=== PATIENT | female | born 1990 | race Caucasian/White ===

== ENCOUNTER 2020-05-26 09:43 | Outpatient (CLI) | payer BC, SELFPAY ==
[2020-05-26] VITALS (7 sets, daily range): BP systolic 114–130; BP diastolic 61–77; PULSE 65–83; TEMP 35.9
--- NOTE | 2020-05-26 10:22 | PC.NURSE ---
Pt sent over from 's office for elevated bp's, NST, PIH labs.
[2020-05-26 10:25] LABS: Basophils Percent Auto 0.3 % (0.2-1.2); Eosinophils Absolute Auto 0.1 K/mm3 (0-0.3); Eosinophils Percent Auto 1.1 % (0-4.4); Hematocrit 35.3 % (37.0-47.0); Hemoglobin 11.8 g/dL (12.0-15.0); Immature Granulocyte Absolute 0.04 K/mm3 (0.00-0.031); Immature Granulocyte Percent A 0.6 % (0-0.5); Lymphocytes Percent Auto 23.2 % (18.3-44.2); Mean Corpuscular HGB Conc 33.4 g/dl (32-36); Mean Corpuscular Hemoglobin 28.4 pg (26-34); Mean Corpuscular Volume 85.1 fl (80-100); Mean Platelet Volume 12.1 fl (7.4-10.4); Monocytes Absolute Auto 0.7 K/mm3 (0.1-0.6); Neutrophils Absolute Auto 4.1 K/mm3 (1.3-6.7); Neutrophils Percent Auto 63.8 % (45.5-73.1); Platelet Count Result 248 k/mm3 (150-375); Red Blood Count 4.15 M/mm3 (4.2-5.4); Red Cell Distribution Width 12.9 % (11.5-14.5); White Blood Count 6.5 K/mm3 (4.5-10.0)
[2020-05-26 10:31] LABS: Add Urine Microscopic? YES; Appearance Urine Cloudy (Clear); Bacteria Urine 2+ /hpf; Bilirubin Urine Negative (Negative); Blood Urine Negative (Negative); Color Urine Yellow (Yellow); Glucose Urine UA 1+ mg/dL (Negative); Ketones Urine Negative (Negative); Leukocyte Esterase Ur Trace LEU/UL (NEGATIVE); Mucus Urine Rare /lpf; Nitrate Urine Negative (Negative); Protein Urine 2+ mg/dL (Negative); RBC Urine 0-2 /hpf (0-2); Specific Grav Ur 1.026 (1.001-1.035); Squamous Epithelial Cell Urine Many /hpf (Few)
[2020-05-26 10:34] LABS: Creatinine Urine 156.7 mg/dL; Total Protein Urine Random 10 mg/dL
[2020-05-26 10:38] LABS: Alanine Aminotransferase 21 U/L (4-35); Albumin Level 3.5 g/dL (3.5-5.1); Alkaline Phosphatase 163 U/L (38-126); Anion Gap 6 mmol/L (8-16); Aspartate Amino Transferase 27 U/L (14-36); Bilirubin,Total 0.3 mg/dL (0.2-1.3); Blood Urea Nitrogen 9 mg/dL (7-17); Calcium 8.4 mg/dL (8.4-10.2); Carbon Dioxide 21 mmol/L (22-30); Chloride 109 mmol/L (98-107); Estimated Glomerular Filt Rate > 60; Glucose 88 mg/dL (65-105); Sodium 136 mmol/L (137-145); Uric Acid 3.6 mg/dL (2.5-7.5)
--- NOTE | 2020-05-26 11:10 | PC.NURSE ---
1059- called, read bp's and lab results. Orders received to discharge pt home
== END 2020-05-26 11:02 | disposition home or self-care (01) ==
LOC: ANHOBOP 09:47 → ANHOBPP 09:48
PROVIDERS: Visit Provider Obstetrics & Gynecology
DX: O13.9 Gestational [pregnancy-induced] hypertension without significant proteinuria, unspecified trimester (principal); Z3A.00 Weeks of gestation of pregnancy not specified
CPT/HCPCS: 36415; 59025; 80053; 81001; 82570; 84156; 84550; 85025; 87086; 87088; 99199

== ENCOUNTER 2020-06-08 04:00 | Inpatient (IN) | payer BC, SELFPAY ==
[2020-06-08] VITALS (77 sets, daily range): BP systolic 93–150; BP diastolic 48–106; PULSE 54–111; RESP 17–18; TEMP 36.3–36.9; O2SAT 99–100; BMI 40.8
--- NOTE | 2020-06-08 04:55 | LDADM ---
This patient, Livia Rivera, was admitted to Labor/Delivery/Recovery 105 on 06/08/20 at 04:00. Plans for labor, pain management and were discussed with patient. Patient/family oriented to hospital policies and general routines including ID bracelet, bed and alarms, visiting hours, pain management, procedures, bathroom and other care routines, personal items, smoking policy, room service/diet and guest tray routines, security routines, and visiting hours. Patient/Family are encouraged to report perceived risks to care and to ask questions if they do not understand what they are told or what they should do. See OBIX for further documentation.
[2020-06-08 04:58] LABS: Basophils Percent Auto 0.5 % (0.2-1.2); Eosinophils Absolute Auto 0.1 K/mm3 (0-0.3); Eosinophils Percent Auto 0.9 % (0-4.4); Hemoglobin 11.5 g/dL (12.0-15.0); Immature Granulocyte Absolute 0.02 K/mm3 (0.00-0.031); Immature Granulocyte Percent A 0.3 % (0-0.5); Lymphocytes Absolute Auto 1.62 K/mm3 (0.9-3.2); Lymphocytes Percent Auto 21.5 % (18.3-44.2); Mean Corpuscular HGB Conc 33.8 g/dl (32-36); Mean Corpuscular Hemoglobin 28.1 pg (26-34); Mean Corpuscular Volume 83.1 fl (80-100); Mean Platelet Volume 12.7 fl (7.4-10.4); Monocytes Absolute Auto 0.8 K/mm3 (0.1-0.6); Monocytes Percent Auto 10.1 % (2.6-8.5); Neutrophils Percent Auto 66.7 % (45.5-73.1); Platelet Count Result 262 k/mm3 (150-375); Red Blood Count 4.09 M/mm3 (4.2-5.4); Red Cell Distribution Width 12.6 % (11.5-14.5); White Blood Count 7.5 K/mm3 (4.5-10.0)
[2020-06-08 05:47] LABS: Alanine Aminotransferase 17 U/L (4-35); Albumin Level 3.3 g/dL (3.5-5.1); Alkaline Phosphatase 167 U/L (38-126); Anion Gap 6 mmol/L (8-16); Aspartate Amino Transferase 26 U/L (14-36); Bilirubin,Total 0.3 mg/dL (0.2-1.3); Blood Urea Nitrogen 13 mg/dL (7-17); Calcium 8.6 mg/dL (8.4-10.2); Carbon Dioxide 19 mmol/L (22-30); Chloride 108 mmol/L (98-107); Estimated CRCL calculation 158 ml/min; Estimated Glomerular Filt Rate > 60; Glucose 94 mg/dL (65-105); Potassium 3.7 mmol/L (3.4-5.0); Sodium 133 mmol/L (137-145); Uric Acid 3.9 mg/dL (2.5-7.5)
[2020-06-08] MEDS: LACTATED RINGERS 1,000 ML 125 ML IV CONT ×2 (07:09→07:54)
--- NOTE | 2020-06-08 07:21 | WPDANESEPP ---
Anes - Eval Pre Procedure Procedure: Labor epidural Date/Time: 06/08/20 07:21 Surgeon: Bill Preop Diagnosis: pain during labor Pre Op Diagnosis: ROM Patient Data Age: 29 Gender: F Height: 1.7 m Weight: 118.18 kg Last Vital Signs Temp 36.6 C 06/08/20 07:00 Pulse 79 06/08/20 07:15 BP 145/96 H 06/08/20 07:15 Allergies Allergy/AdvReac Type Severity Reaction Status Date / Time No Known Allergies Allergy Verified 05/19/20 13:30 Home Medications Medication Instructions Recorded Confirmed Type famotidine [Pepcid] 20 mg PO DAILY 05/19/20 05/26/20 History prenat.vits,danay,vmq-cchc-uxzof 1 tablet PO DAILY 05/19/20 05/26/20 History [ #2] Laboratory Tests 06/08/20 06/08/20 06/08/20 04:40 04:46 04:46 WBC 7.5 K/mm3 K/mm3 (4.5-10.0) RBC 4.09 M/mm3 L M/mm3 (4.2-5.4) Hgb 11.5 g/dL L g/dL (12.0-15.0) Hct 34.0 % L % (37.0-47.0) MCV 83.1 fl fl (80-100) MCH 28.1 pg pg (26-34) MCHC 33.8 g/dl g/dl (32-36) RDW 12.6 % % (11.5-14.5) Plt Count 262 k/mm3 k/mm3 (150-375) MPV 12.7 fl H fl (7.4-10.4) Immature Gran % (Auto) 0.3 % % (0-0.5) Neut % (Auto) 66.7 % % (45.5-73.1) Lymph % (Auto) 21.5 % % (18.3-44.2) [place] % (Auto) 10.1 % H % (2.6-8.5) Eos % (Auto) 0.9 % % (0-4.4) Baso % (Auto) 0.5 % % (0.2-1.2) Lymph # (Auto) 1.62 K/mm3 K/mm3 (0.9-3.2) [place] # (Auto) 0.8 K/mm3 H K/mm3 (0.1-0.6) Eos # (Auto) 0.1 K/mm3 K/mm3 (0-0.3) Baso # (Auto) 0.0 K/mm3 K/mm3 (0.0-0.1) Abs Immat Gran (auto) 0.02 K/mm3 K/mm3 (0.00-0.031) Absolute Neuts (auto) 5.0 K/mm3 K/mm3 (1.3-6.7) Absolute Nucleated RBC 0.0 K/mm3 K/mm3 (0.0-0.012) Nucleated RBC % 0.0 % % (0.0-0.2) Sodium 133 mmol/L L mmol/L (137-145) Potassium 3.7 mmol/L mmol/L (3.4-5.0) Chloride 108 mmol/L H mmol/L (98-107) Carbon Dioxide 19 mmol/L L mmol/L (22-30) Anion Gap 6 mmol/L L mmol/L (8-16) BUN 13 mg/dL mg/dL (7-17) Creatinine 0.60 mg/dL L mg/dL (0.7-1.0) Estim Creat Clear Calc 158 ml/min ml/min Estimated GFR > 60 (59 - ) Glucose 94 mg/dL mg/dL (65-105) Uric Acid 3.9 mg/dL mg/dL (2.5-7.5) Calcium 8.6 mg/dL mg/dL (8.4-10.2) Total Bilirubin 0.3 mg/dL mg/dL (0.2-1.3) AST 26 U/L U/L (14-36) ALT 17 U/L U/L (4-35) Alkaline Phosphatase 167 U/L H U/L (38-126) Total Protein 7.0 g/dL g/dL (6.3-8.2) Albumin 3.3 g/dL L g/dL (3.5-5.1) RPR Pending Blood Type Antibody Screen 06/08/20 04:46 WBC RBC Hgb Hct MCV MCH MCHC RDW Plt Count MPV Immature Gran % (Auto) Neut % (Auto) Lymph % (Auto) [place] % (Auto) Eos % (Auto) Baso % (Auto) Lymph # (Auto) [place] # (Auto) Eos # (Auto) Baso # (Auto) Abs Immat Gran (auto) Absolute Neuts (auto) Absolute Nucleated RBC Nucleated RBC % Sodium Potassium Chloride Carbon Dioxide Anion Gap BUN Creatinine Estim Creat Clear Calc Estimated GFR Glucose Uric Acid Calcium Total Bilirubin AST ALT Alkaline Phosphatase Total Protein Albumin RPR Blood Type A Positive Antibody Screen Negative Patient hx anesthesia problems: none Family hx anesthesia problems: none [facility] Family History Family History (Updated 05/19/20 @ 13:33 by Milton Mcdonald RN) Grandparent Ovarian cancer Grandparent Alzheimer disease Mother Hypertension Socia
[2020-06-08] MEDS: OXYTOCIN 30 UNITS/NS 500 ML 30 UNITS/500 ML BAG IV CONT (09:16)
--- NOTE | 2020-06-08 12:10 | WPDOBADMIT ---
Obstetrics - Admit Note Admission Note: record reviewed. Additions to the history and/or subsequent changes in the physical findings follow. 29 y/o at 38 4/7 weeks here after a gush of clear fluid around 0200 today. SROM confirmed on L&D. Contractions have worsened subsequently. Now comfortable with epidural. GBS neg. essentially uncomplicated, apart from some white coat HTN. AVSS NST reactive TOCO: contractions every 2-4 min ABD soft, nontender, gravid, vertex EXT nontender Cervix /-1 A: IUP at term with SROM / labor. P: Augment labor as needed. Anticipate .
--- NOTE | 2020-06-08 13:11 | PM.OBPRVD ---
OB - Delivery Note Procedure Delivery date: 06/08/20 Procedure: Induction method: none Delivery augmentation: pitocin Delivery monitor: external FHT and external uterine Route of delivery: Laceration Description: Perineal - 2nd Degree Delivery repair: vicryl (3-0) Specimen: Yes (cord blood) Quantitative Blood Loss: 135 Anesthesia type: Epidural Disposition: PACU Complications: Shoulder dystocia Narrative: 29 y/o at 38 4/7 weeks gestation who presented to the hospital after a gush of clear fluid. SROM was diagnosed. She received an epidural for pain control. Labor was augmented with oxytocin. Her labor progressed and her cervix dilated completely. She pushed with good effort and delivered the 's head to the perineum. A loose nuchal cord was reduced. A shoulder dystocia was encountered. Fundal pressure was strictly avoided. Anay maneuver was employed. The posterior (left) shoulder was able to be grasped and rotated in a clockwise direction, dislodging the right shoulder and effecting delivery. The nose and mouth were bulb suctioned. The cord was clamped and cut. The was handed off the field. Cord blood was collected. The placenta delivered spontaneously and was grossly normal in appearance. The usual 3 vessel cord was noted. A second degree midline perineal laceration was sustained. This was reapproximated using 3 0 Vicryl in the usual layered fashion. Excellent hemostasis resulted as did excellent reapproximation of the normal anatomy. Needle and instrument counts were correct. The patient was taken to recovery room in stable condition. The infant went to the nursery in stable condition. I was present and scrubbed for the entire delivery. [place] Baby Date of : 06/08/20 Time of : 12:47 Weeks of gestation at delivery: 38 gender: Female Weight (pounds): 7 Weight (ounces): 11 presentation: vertex position: Left Occiput Anterior Placenta delivery description: Spontaneous and Normal Configuration cord vessel description: 3 Vessels score one minute: 8 score five minutes: 9
--- NOTE | 2020-06-08 13:15 | PM.OBDSVD ---
DS: Admitting Diagnosis Admitting Diagnosis Admitting Diagnosis: ROM DS: Discharge Diagnosis Discharge Diagnosis (1) (normal spontaneous vaginal delivery): Code(s): O80 - Encounter for full-term uncomplicated delivery Status: Acute OB - DS: Summary OB Procedures : None OB Procedures Intrapartum: Spontaneous Vag Delivery OB Procedures: : None DS: Data Data Completed and Pending Labs on day of discharge: Labs from last 24 hours 06/08/20 06/08/20 06/08/20 04:46 04:46 04:46 WBC 7.5 RBC 4.09 L Hgb 11.5 L Hct 34.0 L MCV 83.1 MCH 28.1 MCHC 33.8 RDW 12.6 Plt Count 262 MPV 12.7 H Immature Gran % (Auto) 0.3 Neut % (Auto) 66.7 Lymph % (Auto) 21.5 [place] % (Auto) 10.1 H Eos % (Auto) 0.9 Baso % (Auto) 0.5 Lymph # (Auto) 1.62 [place] # (Auto) 0.8 H Eos # (Auto) 0.1 Baso # (Auto) 0.0 Abs Immat Gran (auto) 0.02 Absolute Neuts (auto) 5.0 Absolute Nucleated RBC 0.0 Nucleated RBC % 0.0 Sodium Potassium Chloride Carbon Dioxide Anion Gap BUN Creatinine Estim Creat Clear Calc Estimated GFR Glucose Uric Acid Calcium Total Bilirubin AST ALT Alkaline Phosphatase Total Protein Albumin RPR Pending Blood Type A Positive Antibody Screen Negative 06/08/20 04:40 WBC RBC Hgb Hct MCV MCH MCHC RDW Plt Count MPV Immature Gran % (Auto) Neut % (Auto) Lymph % (Auto) [place] % (Auto) Eos % (Auto) Baso % (Auto) Lymph # (Auto) [place] # (Auto) Eos # (Auto) Baso # (Auto) Abs Immat Gran (auto) Absolute Neuts (auto) Absolute Nucleated RBC Nucleated RBC % Sodium 133 L Potassium 3.7 Chloride 108 H Carbon Dioxide 19 L Anion Gap 6 L BUN 13 Creatinine 0.60 L Estim Creat Clear Calc 158 Estimated GFR > 60 Glucose 94 Uric Acid 3.9 Calcium 8.6 Total Bilirubin 0.3 AST 26 ALT 17 Alkaline Phosphatase 167 H Total Protein 7.0 Albumin 3.3 L RPR Blood Type Antibody Screen Discharge Plan Discharge Attending physician on discharge: Jose Daniel Khan Discharging Clinician: Jose Daniel Khan Patient Disposition: Home, Self-Care Activity: pelvic rest Diet: regular Discharge Instructions: Call or return if temperature above 100.4? F, increased abdominal pain, increased vaginal bleeding or any new problems. Stand Alone Forms: General Discharge Information Follow-up/Referrals: Jose Daniel Khan MD [Physician] - 6 Weeks Discharge Medications: New ibuprofen 600 mg tablet 600 mg PO Q6H PRN (Reason: cramps) Qty: 30 RF: 0 No Action famotidine [Pepcid] 20 mg Tablet 20 mg PO DAILY RF: 0 #2 Tablet 1 tablet PO DAILY RF: 0 Date of admission: 06/08/20 04:00 Primary Care Provider: PHYSICIAN,CELLO TEACHER Admitting Provider: Jose Daniel Khan Attending physician on admission: Jose Daniel Khan Condition: Stable
[2020-06-08] MEDS: OXYTOCIN 30 UNITS/NS 500 ML 30 UNITS/500 ML BAG 125 UNITS IV CONT (13:27)
[2020-06-08] MEDS: WITCH HAZEL 40 PADS 1 PAD TOPICAL ×2 (15:50→16:34)
[2020-06-08] MEDS: BENZOCAINE 20% AER SPR (*SP) 56 GM CAN 1 SPRAY TOPICAL ×2 (15:50→16:34)
--- NOTE | 2020-06-08 16:12 | PC.NURSE ---
Patient transferred to post room # 292 per wheelchair. Support person present. Oriented to unit, room, information board, rooming in, admission packet and security measures. Patient verbalizes understanding.
[2020-06-08] MEDS: LANOLIN (LANSINOH) 7.5 GM CREAM 1 APPLIC TOPICAL (16:34)
[2020-06-08] MEDS: DOCUSATE SODIUM 100 MG CAPSULE PO (16:34)
[2020-06-08] MEDS: IBUPROFEN 600 MG TABLET PO (16:34)
[2020-06-09] MEDS: IBUPROFEN 600 MG TABLET PO ×2 (01:43→08:50)
[2020-06-09 05:06] LABS: Hematocrit 32.7 % (37.0-47.0); Hemoglobin 10.9 g/dL (12.0-15.0)
--- NOTE | 2020-06-09 07:55 | WPDANLDPN2 ---
Anes-Prog Note L&D Date/Time: 06/09/20 07:55 Comfortable throughout: labor and delivery Neuraxial method: epidural Epidural/Spinal procedure site: clean & non-tender Neuro status: Neuro function grossly intact. Cardiovascular status: normal Respiratory status: normal Airway patency: baseline Mental status: baseline Post-Op hydration status: normal Vital Signs: Last Vital Signs Temp 36.5 C 06/08/20 20:10 Pulse 95 06/08/20 20:10 Resp 17 06/08/20 20:10 BP 133/84 06/08/20 20:10 Pulse Ox 100 06/08/20 09:18 Pain score (VAS): 0 I/O: Intake & Output 06/08/20 06/08/20 06/09/20 15:59 23:59 07:59 Output Total 63 Balance -63 Post-procedural complaints: none Patient feedback: Patient satisfied with anesthetic care.
[2020-06-09] MEDS: MULTIVIT/MIN/PREN/FOL AC/IRON TABLET 1 TAB PO (08:50)
[2020-06-09] MEDS: DOCUSATE SODIUM 100 MG CAPSULE PO (08:50)
[2020-06-09 10:14] LABS: Rapid Plasma Reagin Non-Reactive (NonReactive)
[2020-06-09 11:57] VITALS: BP 152/105; PULSE 86; RESP 18; TEMP 36.4
[2020-06-09 12:05] VITALS: BP 138/87; PULSE 87; RESP 18
[2020-06-09] MEDS: ACETAMINOPHEN 325 MG TABLET 650 MG PO (12:50)
--- NOTE | 2020-06-09 13:46 | PM.OBPNVD ---
OB - PN: Subj Subjective Date/time seen: 06/09/20 13:46 Narrative: Pain OK. Would like to go home. The baby had a left humeral fracture. OB - PN: Obj Data Labs CBC & Chem 7: 06/09/20 04:49 06/08/20 04:40 Labs: Laboratory Results - last 24 hr 06/08/20 06/09/20 04:46 04:49 Hgb 10.9 L Hct 32.7 L RPR Non-reactive OB - PN A/P Plan Comments: A: PPD#1, doing well. P: Home to f/u 6 weeks. Exam Psych: Other: AVSS ABD soft, nontender, fundus firm EXT nontender
[2020-06-12 13:35] VITALS: BP 155/92; PULSE 84; RESP 20; TEMP 36.8; O2SAT 100
== END 2020-06-09 16:55 | disposition home or self-care (01) | DRG 807 ==
LOC: ANHLDR 13:16 → ANHOB2 16:22
PROVIDERS: Admitting Provider Obstetrics & Gynecology; Visit Provider Obstetrics & Gynecology
DX: O66.0 Obstructed labor due to shoulder dystocia (principal); Z37.0 Single live birth; O99.214 Obesity complicating childbirth; E66.01 Morbid (severe) obesity due to excess calories; O70.1 Second degree perineal laceration during delivery; O69.81X0 Labor and delivery complicated by cord around neck, without compression, not applicable or unspecified; Z3A.38 38 weeks gestation of pregnancy
CPT/HCPCS: 36415; 80053; 84550; 85014; 85018; 85025; 86592; 86850; 86900; 86901; A9270; J2590; J2795; J7120

== ENCOUNTER 2022-08-04 19:06 | Observation (INO) | payer BC, SELFPAY ==
[2022-08-04 19:38] VITALS: BP 139/83; PULSE 94
[2022-08-04 19:40] VITALS: BP 138/83; PULSE 93
[2022-08-04 19:50] VITALS: BP 135/80; PULSE 85
[2022-08-04 20:00] VITALS: BP 139/76; PULSE 80
[2022-08-04 20:20] VITALS: BMI 40.7
--- NOTE | 2022-08-04 20:21 | OBADM ---
This patient, Livia Rivera, admitted to the OB room OB Post 116 for observation. Patient/family oriented to hospital policies and general routines including ID bracelet, bed and alarms, visiting hours, pain management, procedures, bathroom and other care routines, personal items, smoking policy, room service/diet, and visiting hours. Patient/Family are encouraged to report perceived risks to care and to ask questions if they do not understand what they are told or what they should do.
--- NOTE | 2022-08-04 22:29 | PM.OBTRLD ---
OB - Triage/Final Diagnosis Visit Information Date of evaluation: 08/04/22 Reason for evaluation: other (abdominal pain) Comments/Additional reasons for admission: I have assessed the risk for this patient, Livia Rivera, and determined that she would benefit from observation care. Evaluation Vital signs: Vital Signs - 24 hr 08/04/22 19:38 08/04/22 19:40 08/04/22 19:50 Pulse Rate 94 93 85 Blood Pressure 139/83 138/83 135/80 08/04/22 20:00 Pulse Rate 80 Blood Pressure 139/76
== END 2022-08-04 20:18 | disposition home or self-care (01) ==
PROVIDERS: Admitting Provider Obstetrics & Gynecology; Visit Provider Obstetrics & Gynecology
DX: O26.899 Other specified pregnancy related conditions, unspecified trimester (principal); R10.9 Unspecified abdominal pain
CPT/HCPCS: 59025; G0378; G0379

== ENCOUNTER 2022-09-01 14:48 | Outpatient (CLI) | payer BC, SELFPAY ==
[2022-09-01] VITALS (8 sets, daily range): BP systolic 137–146; BP diastolic 66–82; PULSE 75–92; RESP 20; TEMP 36.7
[2022-09-01 15:41] LABS: Basophils Percent Auto 0.4 % (0.2-1.2); Eosinophils Percent Auto 0.4 % (0-4.4); Hematocrit 31.3 % (37.0-47.0); Hemoglobin 10.6 g/dL (12.0-15.0); Immature Granulocyte Absolute 0.06 K/mm3 (0.00-0.031); Immature Granulocyte Percent A 0.9 % (0-0.5); Lymphocytes Absolute Auto 1.63 K/mm3 (0.9-3.2); Lymphocytes Percent Auto 24.2 % (18.3-44.2); Mean Corpuscular HGB Conc 33.9 g/dl (32-36); Mean Corpuscular Hemoglobin 29.1 pg (26-34); Mean Platelet Volume 11.8 fl (7.4-10.4); Monocytes Absolute Auto 0.7 K/mm3 (0.1-0.6); Neutrophils Absolute Auto 4.2 K/mm3 (1.3-6.7); Neutrophils Percent Auto 63.1 % (45.5-73.1); Platelet Count Result 228 k/mm3 (150-375); Red Blood Count 3.64 M/mm3 (4.2-5.4); Red Cell Distribution Width 13.2 % (11.5-14.5); White Blood Count 6.7 K/mm3 (4.5-10.0)
[2022-09-01 15:45] LABS: Appearance Urine Cloudy (Clear); Bilirubin Urine Negative (Negative); Blood Urine Negative (Negative); Color Urine Yellow (Yellow); Glucose Urine UA Negative (Negative); Ketones Urine Trace mg/dL (Negative); Leukocyte Esterase Ur Negative LEU/UL (NEGATIVE); Nitrate Urine Negative (Negative); Protein Urine 1+ mg/dL (Negative); Specific Grav Ur 1.025 (1.001-1.035)
[2022-09-01 15:51] LABS: Amorphous Sediment Urine Few; Bacteria Urine Trace /hpf; Mucus Urine Rare /lpf; RBC Urine 0-2 /hpf (0-2); Squamous Epithelial Cell Urine Many /hpf (Few); WBC Urine 0-3 /hpf (0-3)
[2022-09-01 15:52] LABS: Add Urine Microscopic? YES
[2022-09-01 16:09] LABS: Alanine Aminotransferase 22 U/L (6-35); Albumin Level 3.6 g/dL (3.5-5.1); Alkaline Phosphatase 152 U/L (38-126); Anion Gap 3 mmol/L (8-16); Aspartate Amino Transferase 25 U/L (14-36); Bilirubin,Total 0.5 mg/dL (0.2-1.3); Blood Urea Nitrogen 8 mg/dL (7-17); Calcium 8.2 mg/dL (8.4-10.2); Carbon Dioxide 21 mmol/L (22-30); Chloride 106 mmol/L (98-107); Estimated Glomerular Filt Rate > 60; Glucose 99 mg/dL (65-110); Potassium 3.7 mmol/L (3.4-5.0); Sodium 130 mmol/L (137-145); Uric Acid 3.1 mg/dL (2.5-7.5)
[2022-09-01 16:38] LABS: Creatinine Urine 115.6 mg/dL; Total Protein Urine Random 8 mg/dL; Ur Ttl Prot Creatinine Ratio 0.07 mg/mg (0-0.20)
--- NOTE | 2022-09-01 17:37 | PC.NURSE ---
Patient reported to RN that her head feels funny and her thought process was fuzzy . Patient also reported that she has not eaten all day and has no appetite. Patient advised that her symptoms could be related to her elevated blood pressures, side effects of nifedipine or poor nutrition intake. After some teaching, Patient agreed to take zofran and try some snacks. Patient offered juice and ice-cream and also was able to order a dinner tray from dietary. Patient reported that her mind felt better and clear by the time RN left the room
== END 2022-09-01 16:50 | disposition home or self-care (01) ==
LOC: ANHOBOP 15:00 → ANHOBPP 15:00
PROVIDERS: Visit Provider Obstetrics & Gynecology
DX: O13.9 Gestational [pregnancy-induced] hypertension without significant proteinuria, unspecified trimester (principal); Z3A.00 Weeks of gestation of pregnancy not specified
CPT/HCPCS: 36415; 59025; 80053; 81001; 82570; 84156; 84550; 85025; 87086; 87088; 99199

== ENCOUNTER 2022-09-09 05:00 | Inpatient (IN) | payer BC, SELFPAY ==
[2022-09-09] VITALS (114 sets, daily range): BP systolic 85–171; BP diastolic 45–107; PULSE 63–118; RESP 16–18; TEMP 36.3–37.4; O2SAT 97–100; BMI 42.5
--- NOTE | 2022-09-09 05:25 | LDADM ---
This patient, Livia Rivera, was admitted to Labor/Delivery/Recovery 106 on 09/09/22 at 05:00. Plans for labor, pain management and were discussed with patient. Patient/family oriented to hospital policies and general routines including ID bracelet, bed and alarms, visiting hours, pain management, procedures, bathroom and other care routines, personal items, smoking policy, room service/diet and guest tray routines, security routines, and visiting hours. Patient/Family are encouraged to report perceived risks to care and to ask questions if they do not understand what they are told or what they should do. See OBIX for further documentation.
[2022-09-09 06:18] LABS: Basophils Percent Auto 0.5 % (0.2-1.2); Eosinophils Percent Auto 0.7 % (0-4.4); Hematocrit 31.4 % (37.0-47.0); Hemoglobin 10.3 g/dL (12.0-15.0); Immature Granulocyte Absolute 0.03 K/mm3 (0.00-0.031); Immature Granulocyte Percent A 0.5 % (0-0.5); Lymphocytes Absolute Auto 1.62 K/mm3 (0.9-3.2); Lymphocytes Percent Auto 27.5 % (18.3-44.2); Mean Corpuscular HGB Conc 32.8 g/dl (32-36); Mean Corpuscular Hemoglobin 27.9 pg (26-34); Mean Corpuscular Volume 85.1 fl (80-100); Mean Platelet Volume 12.1 fl (7.4-10.4); Monocytes Absolute Auto 0.8 K/mm3 (0.1-0.6); Monocytes Percent Auto 13.4 % (2.6-8.5); Neutrophils Absolute Auto 3.4 K/mm3 (1.3-6.7); Neutrophils Percent Auto 57.4 % (45.5-73.1); Platelet Count Result 235 k/mm3 (150-375); Red Blood Count 3.69 M/mm3 (4.2-5.4); Red Cell Distribution Width 12.9 % (11.5-14.5); White Blood Count 5.9 K/mm3 (4.5-10.0)
[2022-09-09 06:32] LABS: Alanine Aminotransferase 24 U/L (6-35); Albumin Level 3.5 g/dL (3.5-5.1); Alkaline Phosphatase 174 U/L (38-126); Anion Gap 6 mmol/L (8-16); Aspartate Amino Transferase 24 U/L (14-36); Bilirubin,Total 0.5 mg/dL (0.2-1.3); Blood Urea Nitrogen 7 mg/dL (7-17); Calcium 8.2 mg/dL (8.4-10.2); Carbon Dioxide 20 mmol/L (22-30); Chloride 108 mmol/L (98-107); Estimated CRCL calculation 225 ml/min; Estimated Glomerular Filt Rate > 60; Glucose 90 mg/dL (65-110); Potassium 3.7 mmol/L (3.4-5.0); Sodium 134 mmol/L (137-145); Uric Acid 3.6 mg/dL (2.5-7.5)
[2022-09-09] MEDS: OXYTOCIN 30 UNITS/NS 500 ML 30 UNITS/500 ML BAG IV CONT (06:32)
[2022-09-09] MEDS: LACTATED RINGERS 1,000 ML 125 ML IV CONT ×2 (06:32→11:31)
--- NOTE | 2022-09-09 08:45 | WPDOBADMIT ---
Obstetrics - Admit Note Admission Note: record reviewed. Additions to the history and/or subsequent changes in the physical findings follow. 32 y/o at 38 weeks with chronic hypertension and worsening blood pressure control, here for induction of labor. otherwise uncomplicated. GBS neg. AVSS NST reactive TOCO: contractions irregularly ABD soft, nontender, gravid, vertex EXT nontender Cervix 3/50/-2. AROM with clear fluid. IUPC placed. A: IUP at term with favorable cervix, CHTN with worsening bp control. She desires induction of labor. P: Oxytocin. Anticipate .
[2022-09-09 09:44] LABS: Rapid Plasma Reagin Non-Reactive (NonReactive)
--- NOTE | 2022-09-09 10:30 | WPDANESEPP ---
Anes - Eval Pre Procedure Procedure: Labor Epidural Date/Time: 09/09/22 10:30 Surgeon: Bill Preop Diagnosis: Pain during labor Pre Op Diagnosis: IOL Patient Data Age: 32 Gender: F Height: 1.7 m Weight: 123 kg Last Vital Signs Temp 36.6 C 09/09/22 08:30 Pulse 81 09/09/22 10:00 Resp 16 09/09/22 06:00 BP 137/93 H 09/09/22 10:00 O2 Del Method Room Air 09/09/22 05:24 Allergies Allergy/AdvReac Type Severity Reaction Status Date / Time No Known Allergies Allergy Verified 05/19/20 13:30 Home Medications Medication Instructions Recorded Confirmed Type omeprazole magnesium 20 mg 20 mg PO DAILY 08/04/22 09/09/22 History capsule,delayed release (Acid Spray I Painter (omeprazole)) Laboratory Tests 09/09/22 09/09/22 09/09/22 05:17 05:17 05:17 WBC 5.9 K/mm3 K/mm3 (4.5-10.0) RBC 3.69 M/mm3 L M/mm3 (4.2-5.4) Hgb 10.3 g/dL L g/dL (12.0-15.0) Hct 31.4 % L % (37.0-47.0) MCV 85.1 fl fl (80-100) MCH 27.9 pg pg (26-34) MCHC 32.8 g/dl g/dl (32-36) RDW 12.9 % % (11.5-14.5) Plt Count 235 k/mm3 k/mm3 (150-375) MPV 12.1 fl H fl (7.4-10.4) Immature Gran % (Auto) 0.5 % % (0-0.5) Neut % (Auto) 57.4 % % (45.5-73.1) Lymph % (Auto) 27.5 % % (18.3-44.2) [place] % (Auto) 13.4 % H % (2.6-8.5) Eos % (Auto) 0.7 % % (0-4.4) Baso % (Auto) 0.5 % % (0.2-1.2) Lymph # (Auto) 1.62 K/mm3 K/mm3 (0.9-3.2) [place] # (Auto) 0.8 K/mm3 H K/mm3 (0.1-0.6) Eos # (Auto) 0.0 K/mm3 K/mm3 (0-0.3) Baso # (Auto) 0.0 K/mm3 K/mm3 (0.0-0.1) Abs Immat Gran (auto) 0.03 K/mm3 K/mm3 (0.00-0.031) Absolute Neuts (auto) 3.4 K/mm3 K/mm3 (1.3-6.7) Absolute Nucleated RBC 0.0 K/mm3 K/mm3 (0.0-0.012) Nucleated RBC % 0.0 % % (0.0-0.2) Sodium Potassium Chloride Carbon Dioxide Anion Gap BUN Creatinine Estim Creat Clear Calc Estimated GFR Glucose Uric Acid Calcium Total Bilirubin AST ALT Alkaline Phosphatase Total Protein Albumin RPR Non-reactive (NonReactive) Blood Type A Positive Antibody Screen Negative 09/09/22 06:00 WBC RBC Hgb Hct MCV MCH MCHC RDW Plt Count MPV Immature Gran % (Auto) Neut % (Auto) Lymph % (Auto) [place] % (Auto) Eos % (Auto) Baso % (Auto) Lymph # (Auto) [place] # (Auto) Eos # (Auto) Baso # (Auto) Abs Immat Gran (auto) Absolute Neuts (auto) Absolute Nucleated RBC Nucleated RBC % Sodium 134 mmol/L L mmol/L (137-145) Potassium 3.7 mmol/L mmol/L (3.4-5.0) Chloride 108 mmol/L H mmol/L (98-107) Carbon Dioxide 20 mmol/L L mmol/L (22-30) Anion Gap 6 mmol/L L mmol/L (8-16) BUN 7 mg/dL mg/dL (7-17) Creatinine 0.40 mg/dL L mg/dL (0.7-1.0) Estim Creat Clear Calc 225 ml/min ml/min Estimated GFR > 60 (59 - ) Glucose 90 mg/dL mg/dL (65-110) Uric Acid 3.6 mg/dL mg/dL (2.5-7.5) Calcium 8.2 mg/dL L mg/dL (8.4-10.2) Total Bilirubin 0.5 mg/dL mg/dL (0.2-1.3) AST 24 U/L U/L (14-36) ALT 24 U/L U/L (6-35) Alkaline Phosphatase 174 U/L H U/L (38-126) Total Protein 6.0 g/dL L g/dL (6.3-8.2) Albumin 3.5 g/dL g/dL (3.5-5.1) RPR Blood Type Antibody Screen Patient hx anesthesia problems: none Family hx anesthesia problems: none Results Review: All pre-operative results and documents have been reviewed as part of the pre-operative evaluatio
[2022-09-09] MEDS: ONDANSETRON INJ 4 MG/2 ML VIAL IV PUSH (15:25)
--- NOTE | 2022-09-09 16:31 | P.PCNOB_ITS ---
OB - Delivery Note Procedure Delivery date: 09/09/22 Procedure: Induction of labor with Events: Chronic Hypertension Induction method: Per Pitocin Protocol Delivery augmentation: Rupture of Membranes and Pitocin Delivery monitor: External FHT, External Uterine and Internal Uterine Route of delivery: Laceration Description: Perineal - 1st Degree Delivery repair: vicryl (3-0) Specimen: Yes (cord blood) Quantitative Blood Loss (ml): 120 Anesthesia type: Epidural Disposition: PACU Complications: None Narrative: 32 y/o at 38 weeks gestation who presented to the hospital for induction of labor. Oxytocin was administered intravenously. Amniotomy was performed with return of clear fluid. She received an epidural for pain control. Her labor progressed and her cervix dilated completely. She pushed with good effort and delivered the 's head to the perineum. A loose nuchal cord was splinted and the body delivered. The cord was reduced. The nose and mouth were bulb suctioned. After a delay, the cord was clamped and cut. The infant was handed off the field. Cord blood was collected. The placenta delivered spontaneously and was grossly normal in appearance. The usual 3 vessel cord was noted. A first degree midline perineal laceration was sustained. This was reapproximated using 3 0 Vicryl in interrupted, figure of eight fashion. Excellent hemostasis resulted as did excellent reapproximation of the normal anatomy. Needle and instrument counts were correct. The patient was taken to recovery room in stable condition. The went to the nursery in stable condition. I was present and scrubbed for the entire delivery. [place] Baby Date of : 09/09/22 Time of : 16:15 Weeks of gestation at delivery: 38 Infant gender: Female Weight (pounds): 6 Weight (ounces): 14 presentation: vertex position: Right Occiput Anterior Placenta delivery description: Spontaneous and Normal Configuration Cord Vessel Description: 3 Vessels, Nuchal Cord and Delayed Cord Clamping score one minute: 9 score five minutes: 9
--- NOTE | 2022-09-09 16:34 | PM.OBDSVD ---
DS: Admitting Diagnosis Discharge Date 09/10/22 Admitting Diagnosis IUP at 38 weeks Chronic hypertension with worsening bp control DS: Discharge Diagnosis Discharge Diagnosis (1) (normal spontaneous vaginal delivery): Code(s): O80 - Encounter for full-term uncomplicated delivery Status: Acute (2) Chronic hypertension affecting : Code(s): O10.919 - Unspecified pre-existing hypertension complicating , unspecified trimester Status: Acute OB - DS: Summary OB Procedures : None OB Procedures Intrapartum: Spontaneous Vag Delivery OB Procedures: : None Time Spent with Patient Time attestation: Total time spent providing and/or coordinating discharge services: DS: Data Data Completed and Pending Labs on day of discharge: Labs from last 24 hours 09/09/22 09/09/22 09/09/22 06:00 05:17 05:17 WBC RBC Hgb Hct MCV MCH MCHC RDW Plt Count MPV Immature Gran % (Auto) Neut % (Auto) Lymph % (Auto) [place] % (Auto) Eos % (Auto) Baso % (Auto) Lymph # (Auto) [place] # (Auto) Eos # (Auto) Baso # (Auto) Abs Immat Gran (auto) Absolute Neuts (auto) Absolute Nucleated RBC Nucleated RBC % Sodium 134 L Potassium 3.7 Chloride 108 H Carbon Dioxide 20 L Anion Gap 6 L BUN 7 Creatinine 0.40 L Estim Creat Clear Calc 225 Estimated GFR > 60 Glucose 90 Uric Acid 3.6 Calcium 8.2 L Total Bilirubin 0.5 AST 24 ALT 24 Alkaline Phosphatase 174 H Total Protein 6.0 L Albumin 3.5 RPR Non-reactive Blood Type A Positive Antibody Screen Negative 09/09/22 05:17 WBC 5.9 RBC 3.69 L Hgb 10.3 L Hct 31.4 L MCV 85.1 MCH 27.9 MCHC 32.8 RDW 12.9 Plt Count 235 MPV 12.1 H Immature Gran % (Auto) 0.5 Neut % (Auto) 57.4 Lymph % (Auto) 27.5 [place] % (Auto) 13.4 H Eos % (Auto) 0.7 Baso % (Auto) 0.5 Lymph # (Auto) 1.62 [place] # (Auto) 0.8 H Eos # (Auto) 0.0 Baso # (Auto) 0.0 Abs Immat Gran (auto) 0.03 Absolute Neuts (auto) 3.4 Absolute Nucleated RBC 0.0 Nucleated RBC % 0.0 Sodium Potassium Chloride Carbon Dioxide Anion Gap BUN Creatinine Estim Creat Clear Calc Estimated GFR Glucose Uric Acid Calcium Total Bilirubin AST ALT Alkaline Phosphatase Total Protein Albumin RPR Blood Type Antibody Screen Discharge Plan Discharge Attending physician on discharge: Jose Daniel Khan Discharging Clinician: Jose Daniel Khan Patient Disposition: Home, Self-Care Activity: pelvic rest Diet: regular Discharge Instructions: Call or return if temperature above 100.4? F, increased abdominal pain, increased vaginal bleeding or any new problems. Stand Alone Forms: General Discharge Information Follow-up/Referrals: Jose Daniel Khan MD [Physician] - 6 Weeks Discharge Medications: New ibuprofen 600 mg tablet 600 mg PO Q6H PRN (Reason: cramps) Qty: 30 0RF Continued omeprazole magnesium [Acid Art History Professor (omeprazole)] 20 mg Capsule,Delayed Release(Dr/Ec) 20 mg PO DAILY Date of admission: 09/09/22 05:00 Primary Care Provider: PHYSICIAN,MAGENTO WEB DEVELOPER Admitting Provider: Jose Daniel Khan Attending physician on admission: Jose Daniel Khan Condition: Stable
[2022-09-09] MEDS: OXYTOCIN 30 UNITS/NS 500 ML 30 UNITS/500 ML BAG 125 UNITS IV CONT (16:45)
[2022-09-09] MEDS: BENZOCAINE 20% AER SPR (*SP) 56 GM CAN 1 SPRAY TOPICAL (18:40)
[2022-09-09] MEDS: WITCH HAZEL 40 PADS 1 PAD TOPICAL (18:40)
[2022-09-09] MEDS: IBUPROFEN 600 MG TABLET PO (19:36)
[2022-09-10] MEDS: IBUPROFEN 600 MG TABLET PO ×2 (00:57→07:45)
[2022-09-10 05:00] VITALS: BP 132/76; PULSE 95; RESP 13; TEMP 36.2
[2022-09-10 05:15] LABS: Hematocrit 31.4 % (37.0-47.0); Hemoglobin 10.3 g/dL (12.0-15.0)
[2022-09-10 07:45] VITALS: BP 124/72; PULSE 89; RESP 18; TEMP 36.7; O2SAT 100
[2022-09-10] MEDS: MULTIVIT/MIN/PREN/FOL AC/IRON TABLET 1 TAB PO (07:45)
[2022-09-10] MEDS: DOCUSATE SODIUM 100 MG CAPSULE PO (07:45)
--- NOTE | 2022-09-10 08:00 | WPDANLDPN2 ---
Anes-Prog Note L&D Date/Time: 09/10/22 08:00 Neuro status: Neuro function grossly intact. Cardiovascular status: normal Respiratory status: normal Airway patency: baseline Mental status: baseline Post-Op hydration status: normal Vital Signs: Last Vital Signs Temp 36.2 C L 09/10/22 05:00 Pulse 95 09/10/22 05:00 Resp 13 09/10/22 05:00 BP 132/76 09/10/22 05:00 Pulse Ox 100 09/09/22 16:11 O2 Del Method Room Air 09/09/22 05:24 Pain score (VAS): 2 I/O: Intake & Output 09/09/22 09/10/22 09/10/22 23:59 07:59 15:59 Intake Total 1100 Output Total 260 Balance 840 Post-procedural complaints: none Patient feedback: Patient satisfied with anesthetic care.
--- NOTE | 2022-09-10 11:09 | PM.OBPNVD ---
OB - PN: Subj Subjective Date/time seen: 09/10/22 11:09 Narrative: Pain OK. Would like to go home. OB - PN: Obj Data Labs 09/10/22 05:04 09/09/22 06:00 Labs: Laboratory Results - last 24 hr 09/10/22 05:04 Hgb 10.3 L Hct 31.4 L OB - PN A/P Plan day: 1 Comments: A: PPD#1, doing well. P: Home to f/u 6 weeks. Time Spent With Patient Time with patient: less than 15 minutes Exam Psych: Other: AVSS ABD soft, nontender, fundus firm EXT nontender
[2022-09-10] MEDS: ACETAMINOPHEN 325 MG TABLET 650 MG PO (12:00)
[2022-09-10 12:32] VITALS: BP 132/89; PULSE 106; TEMP 37.4
[2022-09-12 13:51] VITALS: PULSE 79; RESP 18; TEMP 37.3; O2SAT 99
== END 2022-09-10 17:40 | disposition home or self-care (01) | DRG 807 ==
LOC: ANHLDR 16:38 → ANHOB2 19:17
PROVIDERS: Admitting Provider Obstetrics & Gynecology; Visit Provider Obstetrics & Gynecology
DX: O10.92 Unspecified pre-existing hypertension complicating childbirth (principal); Z37.0 Single live birth; O70.0 First degree perineal laceration during delivery; O69.81X0 Labor and delivery complicated by cord around neck, without compression, not applicable or unspecified; Z3A.38 38 weeks gestation of pregnancy
CPT/HCPCS: 36415; 80053; 84550; 85014; 85018; 85025; 86592; 86850; 86900; 86901; A9270; J2405; J2590; J2795; J7120